=== PATIENT | female | born 1945 | race Caucasian/White ===

== ENCOUNTER 2018-07-14 09:53 | Observation (INO) ==
--- NOTE | 2018-07-14 10:59 | Emergency Department Note ---
Disposition Clinical Impression: Epistaxis GI bleed Qualifiers: GI bleed type/associated pathology: unspecified gastrointestinal hemorrhage type Qualified Code(s): K92.2 - Gastrointestinal hemorrhage, unspecified Disposition: Admitted As Inpatient Condition: Good Referrals: Cat Moser CNP [Primary Care Provider] - Christiano Duarte [Family Provider] - Forms: ED Satisfaction Letter Time of Disposition: 11:29 General Adult HPI - General Chief complaint: ED Epistaxis Stated complaint: epistaxis Time Seen by Provider: 07/14/18 10:02 Source: patient Mode of arrival: ambulatory Limitations: no limitations Nursing Notes Reviewed: Yes Vital Signs Reviewed: Yes - History of Present Illness HPI Narrative: Patient is a transfer here via EMS from [facility] for further evaluation. Patient was seen there for having 4 days of epistaxis. She is on Coumadin but says she stopped taking 4 days ago started having the bleeding. She says the bleeding is been intermittent for the last 3 days. While [facility] they did place 2 rhino rockets in the left there which did stop the bleeding. Patient had a normal hemoglobin and elevated INR 2.6 so they gave vitamin K but due to the length of time to get fresh frozen plasma they said a transfer here before given any FFP. Patient otherwise says she feels well now. She was sent here for ENT and GI follow-up. While patient was at the outside hospital she did have a bowel movement and a commode which was black they did do Hemoccult and it was positive for blood Sirs worry about GI bleed. Patient does not have any GI complaints including no abdominal pain or any nausea or vomiting. Pain Scale: 0 - Related Data Home Medications Medication Instructions Recorded Confirmed Albuterol Sulfate [Proair Hfa] 2 puff IH Q4H PRN 07/14/18 07/14/18 Fluticasone Propionate Nasal 1 spray NS DAILY PRN 07/14/18 07/14/18 [Flonase] Levothyroxine Sodium [Levoxyl] 50 mcg PO DAILY 07/14/18 07/14/18 Metoprolol Succinate [Toprol Xl] 100 mg PO DAILY 07/14/18 07/14/18 Warfarin Sodium 3.75 mg PO DAILY 07/14/18 07/14/18 Allergies Allergy/AdvReac Type Severity Reaction Status Date / Time tetanus and diphtheria Allergy Swelling Verified 07/14/18 10:02 toxoids of Lip/Tongue/Throat codeine AdvReac Headache Verified 07/14/18 10:02 Sulfa (Sulfonamide AdvReac Headache Verified 07/14/18 10:02 Antibiotics) Review of Systems: As Per HPI Limitations: ROS unobtainable due to patients medical condition Constitutional: Denies: fever, chills, weakness, weight change Eyes: Denies: eye pain, eye discharge, vision change ENT ED: Reports: epistaxis. Denies: ear pain, throat pain, dental pain, hearing loss, congestion, dysphagia Cardiovascular: Denies: chest pain, palpitations, dyspnea on exertion, edema, syncope Respiratory: Denies: cough, dyspnea, wheezes, hemoptysis, stridor Gastrointestinal: Denies: abdominal pain, nausea, vomiting, diarrhea, constipation, hematemesis, melena, hematochezia Genitourinary: Denies: dysuria, frequency, hematuria, discharge Musculoskeletal: Denies: back pain, neck pain, arthralgia, myalgia Integumentary: Denies: rash, abrasion, lesions Neurological: Denies: headache, weakness, numbness, paresthesias, confusion, abnormal gait, vertigo Psychiatric: Denies: anxiety, depression, suicidal thoughts, homicidal thoughts , auditory hallucinations, visual hallucinations Endocrine: Denies: fatigue Hematological/Lymphatic: Reports: easy bleeding. Denies: easy bruising Allergic/Immunologic: Denies: facial swelling, urticaria Past Medical History - Past Medical History Attestation: Yes The following information was validated with the patient. Source: patient Medical history: Reports: atrial fibrillation, cancer, COPD, hypertension Psychiatric history: Reports: no psych history - Social History Smoking Status: Current every day smoker Smokeless Tobacco Status: No Alcohol use: Reports: heavy Drug use: Reports: none Physical Exam - General Limitations: no limitations General appearance: alert, in no apparent distress - Head Head exam: atraumatic, normocephalic, normal inspection - Eye Eye exam: Present: normal appearance, PERRL, EOMI - ENT ENT exam: normal exam, normal oropharynx, mucous membranes moist, other (2 Rhino Rocket placed in the left nares no active bleeding at this time.) - Neck Neck exam: Present: normal inspection, full ROM, trachea midline - Chest Chest inspection: Present: normal inspection, symmetric chest wall rise - Respiratory Respiratory exam: Present: normal lung sounds bilaterally - Cardiovascular Cardiovascular exam: Present: regular rate, normal rhythm, normal heart sounds - Abdominal Exam Abdominal exam: Present: soft, Non-Tender, normal bowel sounds. Absent: tenderness, distention, guarding, rebound, rigidity - Extremities Exam Extremities exam: Present: normal inspection, full ROM. Absent: tenderness, pedal edema - Back Exam Back exam: Present: normal inspection, full ROM. Absent: tenderness, CVA tenderness (R), CVA tenderness (L) - Neurological Exam Neurological exam: Present: alert, oriented X3 - Skin Skin exam: Present: warm, dry, intact, normal color Course Course Narrative: Patient's pain workup was done at the outside hospital. She had normal white count and hematocrit crit was 40.9 hemoglobin 13.7 INR was 2.6 PTT was 45.4 vital signs of been stable. She did have one episode of hypertension where she was given 100 mg of Lopressor her blood pressure dropped to 102/60 so she was given 500 mL of IV fluid and responded well to that. She is arty Hemoccult- positive at the outside ER. We will repeat a PT INR as well as CBC be sure she still stable. Patient will need admission to hospital Vital Signs Temperature 99.2 F 07/14/18 09:56 Pulse Rate 71 07/14/18 09:56 Respiratory Rate 18 07/14/18 09:56 Blood Pressure 137/70 07/14/18 09:56 O2 Sat by Pulse Oximetry 98 07/14/18 09:56 Temperature 99.2 F 07/14/18 09:56 Pulse Rate 71 07/14/18 09:56 Respiratory Rate 18 07/14/18 09:56 Blood Pressure 137/70 07/14/18 09:56 O2 Sat by Pulse Oximetry 98 07/14/18 09:56 Oxygen Delivery Oxygen Delivery Room Air Medical Decision Making - MDM Narrative Medical decision making narrative: Patient had INR 2.3 and a stable hemoglobin of 13.4. Due to the possible of a GI bleed from the outside hospital we will admit for further evaluation. I spoke with the hospitalist Dr. Russell who agreed to admit the patient to their service. Patient is admitted in stable condition she agrees with this plan. - Lab Data Lab results reviewed: Yes I reviewed the patient's lab results. Result diagrams: 07/14/18 10:58 Lab Results 07/14/18 07/14/18 Range/Units 10:58 10:58 WBC 7.5 (4.3-11.1) K/mcL RBC 4.14 (3.82-4.97) M/mcL Hgb 13.4 (11.5-15.4) g/dL Hct 41.1 (35.3-44.9) % MCV 99.3 (83.0-100.0) fL MCH 32.4 (28.0-33.3) pg MCHC 32.6 (31.6-35.5) g/dL RDW 13.2 (11.5-14.5) % Plt Count 114 L (140-400) K/mcL MPV 11.8 (9.4-12.4) fL Immature Gran % 0.3 (0-4) % Seg Neutrophils % 80.4 % Lymphocytes % 10.9 % Monocytes % 7.5 % Eosinophils % 0.5 % Basophils % 0.4 % Neutrophils # 6.0 (1.6-8.9) K/mcL Lymphocytes # 0.8 (0.6-4.6) K/mcL Monocytes # 0.6 (0.0-1.3) K/mcL Eosinophils # 0.0 (0.0-0.6) K/mcL Basophils # 0.0 (0.0-0.2) K/mcL PT 25.6 H (9.4-12.1) Seconds INR 2.3
[2018-07-14 11:10] LABS: Basophils % 0.4 %; Eosinophils % 0.5 %; Hematocrit 41.1 % (35.3-44.9); Hemoglobin 13.4 g/dL (11.5-15.4); Immature Granulocytes % 0.3 % (0-4); Lymphocytes # 0.8 K/mcL (0.6-4.6); Lymphocytes % 10.9 %; Mean Corpuscular HGB Conc 32.6 g/dL (31.6-35.5); Mean Corpuscular Hemoglobin 32.4 pg (28.0-33.3); Mean Corpuscular Volume 99.3 fL (83.0-100.0); Mean Platelet Volume 11.8 fL (9.4-12.4); Monocytes # 0.6 K/mcL (0.0-1.3); Monocytes % 7.5 %; Platelet Count 114 K/mcL (140-400); Red Blood Count 4.14 M/mcL (3.82-4.97); Red Cell Distribution Width 13.2 % (11.5-14.5); Segmented Neutrophils % 80.4 %
--- NOTE | 2018-07-14 11:10 | Emergency Department Note ---
Disposition Clinical Impression: Epistaxis GI bleed Qualifiers: GI bleed type/associated pathology: unspecified gastrointestinal hemorrhage type Qualified Code(s): K92.2 - Gastrointestinal hemorrhage, unspecified Disposition: Admitted As Inpatient Condition: Good Forms: ED Satisfaction Letter Time of Disposition: 11:11 General Adult HPI - General Chief complaint: ED Epistaxis Stated complaint: epistaxis Time Seen by Provider: 07/14/18 10:02 Source: patient Mode of arrival: ambulatory Limitations: no limitations - History of Present Illness Pain Scale: 0 - Related Data Home Medications Medication Instructions Recorded Confirmed Albuterol Sulfate [Proair Hfa] 2 puff IH Q4H PRN 07/14/18 07/14/18 Fluticasone Propionate Nasal 1 spray NS DAILY PRN 07/14/18 07/14/18 [Flonase] Levothyroxine Sodium [Levoxyl] 50 mcg PO DAILY 07/14/18 07/14/18 Metoprolol Succinate [Toprol Xl] 100 mg PO DAILY 07/14/18 07/14/18 Warfarin Sodium 3.75 mg PO DAILY 07/14/18 07/14/18 Allergies Allergy/AdvReac Type Severity Reaction Status Date / Time tetanus and diphtheria Allergy Swelling Verified 07/14/18 10:02 toxoids of Lip/Tongue/Throat codeine AdvReac Headache Verified 07/14/18 10:02 Sulfa (Sulfonamide AdvReac Headache Verified 07/14/18 10:02 Antibiotics) Constitutional: Denies: fever, chills, weakness, weight change Eyes: Denies: eye pain, eye discharge, vision change ENT ED: Reports: epistaxis. Denies: ear pain, throat pain, dental pain, hearing loss, congestion, dysphagia Cardiovascular: Denies: chest pain, palpitations, dyspnea on exertion, edema, syncope Respiratory: Denies: cough, dyspnea, wheezes, hemoptysis, stridor Gastrointestinal: Denies: abdominal pain, nausea, vomiting, diarrhea, constipation, hematemesis, melena, hematochezia Genitourinary: Denies: dysuria, frequency, hematuria, discharge Musculoskeletal: Denies: back pain, neck pain, arthralgia, myalgia Integumentary: Denies: rash, abrasion, lesions Neurological: Denies: headache, weakness, numbness, paresthesias, confusion, abnormal gait, vertigo Psychiatric: Denies: anxiety, depression, suicidal thoughts, homicidal thoughts , auditory hallucinations, visual hallucinations Endocrine: Denies: fatigue Hematological/Lymphatic: Reports: easy bleeding. Denies: easy bruising Allergic/Immunologic: Denies: facial swelling, urticaria Past Medical History - Past Medical History Medical history: Reports: atrial fibrillation, cancer, COPD, hypertension Psychiatric history: Reports: no psych history - Social History Smoking Status: Current every day smoker Smokeless Tobacco Status: No Alcohol use: Reports: heavy Drug use: Reports: none Physical Exam - General Limitations: no limitations General appearance: alert, in no apparent distress Course Vital Signs Temperature 99.2 F 07/14/18 09:56 Pulse Rate 71 07/14/18 09:56 Respiratory Rate 18 07/14/18 09:56 Blood Pressure 137/70 07/14/18 09:56 O2 Sat by Pulse Oximetry 98 07/14/18 09:56 Temperature 99.2 F 07/14/18 09:56 Pulse Rate 71 07/14/18 09:56 Respiratory Rate 18 07/14/18 09:56 Blood Pressure 137/70 07/14/18 09:56 O2 Sat by Pulse Oximetry 98 07/14/18 09:56 Oxygen Delivery Oxygen Delivery Room Air Attestation Statement - Attestation Attestation: I examined this patient and my medical decision-making was reviewed with the Resident Physician. I agree with the documented findings, disposition and treatment plan as described except to the extent set forth below. 73 year old female presents to the ED with complaints about nosebleed and balck stools. Shes tates that she is currently on coumadin and is therapeutic with a INR of 2.6 and states that she was seen at an outside facility [facility] for the initial workup and had a hemoccult postive test which is likley from the blood she may have been swallowing over hte course of the night fromher nose bleed in addition to have nasal rockets palced and her nosebleed as stopped. The outside facility has bgiven her vitamin K before arrival. NO FFP, and I do not think she needs FFP at this time. She has been sent here for admission for GI/ENT possible evlauation.
[2018-07-14 11:19] LABS: INR 2.3; Prothrombin Time 25.6 Seconds (9.4-12.1)
[2018-07-14] MEDS ORDERED: Naloxone 0.4 MG/ML INJ IVP PRN (11:49)
--- NOTE | 2018-07-14 13:17 | Internal Med History&Physical ---
Date of Encounter: 07/14/18 Internal Medicine - H&P: HPI History of present illness: Ms. Fatima is a 73 year old female Past Med Surg Social Fam HX - Past Medical History Medical history: atrial fibrillation, cancer, COPD, hypertension Psychiatric history: no psych history - Social History Smoking Status: Current every day smoker Smokeless Tobacco Status: No Alcohol use: heavy Drug use: none Internal Medicine - H&P: Meds Albuterol Sulfate [Proair Hfa] 2 puff IH Q4H PRN 07/14/18 [History] Fluticasone Propionate Nasal [Flonase] 1 spray NS DAILY PRN 07/14/18 [History] Levothyroxine Sodium [Levoxyl] 50 mcg PO DAILY 07/14/18 [History] Metoprolol Succinate [Toprol Xl] 100 mg PO DAILY 07/14/18 [History] Warfarin Sodium 3.75 mg PO DAILY 07/14/18 [History] 3 Allergy/AdvReac Type Severity Reaction Status Date / Time tetanus and diphtheria Allergy Swelling Verified 07/14/18 10:02 toxoids of Lip/Tongue/Throat codeine AdvReac Headache Verified 07/14/18 10:02 Sulfa (Sulfonamide AdvReac Headache Verified 07/14/18 10:02 Antibiotics) All Systems PM: A 10-system review of systems was performed and is negative for pertinent findings except as documented above in the HPI. - Constitutional Vitals: Temp Pulse Resp BP Pulse Ox 99.2 F 84 18 139/84 97 07/14/18 09:56 07/14/18 12:03 07/14/18 09:56 07/14/18 12:03 07/14/18 12:03 Internal Med - H&P Results - Labs CBC & Chem 7: 07/14/18 10:58 - Time Spent With Patient Total time spent is greater than 50% in coordination of care (as documented) at patient's floor/unit and/or counseling patient:
--- NOTE | 2018-07-14 15:15 | Internal Med History&Physical ---
Date of Encounter: 07/14/18 Time of Encounter: 10:00 Internal Medicine - H&P: HPI Chief complaint: Nose bleeding for the past 72 hours waxing and waning. Admitted From: Emergency Dept Plans for Post Hospital Care: Home History of present illness: Ms. Fatima is a 73 year old female whom was transferred from [facility] Emergency department with Epistasis from bilateral nares. She was found to have had positive occult stools, PLT were low @112, PT elevated @28.6, INR of 2.6. PTT 45.4. Her b/p was elevated @ 152/106, with hx of essential hypertension . Patient denied any injury or trauma to the nose, with sudden on set of nose bleeds "that she could control " 3 days prior to reporting to [facility]. Reports that she reports that her INR "usually runs between 2.5 and 3". ED course [facility] Patient was evaluated and given 500 ml of NS for mild hypotensive episode with recoreded b/p of 102/60, , although previous readings were elevated with highiest number noted of 179/87. [place] [id number]. She was given 100 mg Lopressor ;po and 10 mg of Hydralazine IV along with 10 mg of Vitamin K sq. H and H were found to be normal with 13.7 and 40.9 respectively. Protonix bolus was given. Rapid Rhino packing was placed both nostrils. EKG was obtained and positive for Atrial fibrillation, rightward axis, Vent rat of 79. Determination after review at [facility] to transfer here to [place] was made and patient was accepted by [place] ED. Patient arrived in stable condition per EMS with Rapd Rhino packing in place both nares , with continued small amount of bright red bleeding around nasal devices. On PE patient is no acute distress, denies gross hematuria , blood in stool, pain, or diacomfort. She is seated comfortably on the side of the bed. She does become dyspnic with laying down to examine the abdomen, and states she had left upper quad pain with percussion. Reports she continues to smoke 1ppd x > 30 years, and is not willing to quit at this time. Abdomin was soft with BS x 4 quads. Patient was evaluated per this provider in ED as well as Dr. Russell, decision to admit to observation unit was completed, and patient was transferred from ED to Observation unit 3B for further workup with ENT,and gastroenterology. HX: * Afib with anticoagulation , taking Coumadin 3.5 mg daily with monitoring of PT/INR monthly, * Hypertension *COPD * Smoking 1 ppd for more than 30 pack years *Atrial fibrillation *Alcohol abuse history Past Med Surg Social Fam HX - Past Medical History Source: patient Medical history: atrial fibrillation, cancer, COPD, hypertension Additional medical history: Smoker. Nicotine Addiction. COPD. Alcohol use daily Psychiatric history: no psych history - Social History Smoking Status: Current every day smoker Packs per day: 1 Smokeless Tobacco Status: No Alcohol use: heavy Drug use: none Current living situation: Home - Independent Activity Level: Independent ambulation Recent Out of Country Travel Within the Last 8 Weeks: No Exposure or Possible Exposure to Illness During Travel: No Internal Medicine - H&P: Meds Albuterol Sulfate [Proair Hfa] 2 puff IH Q4H PRN 07/14/18 [History] Fluticasone Propionate Nasal [Flonase] 1 spray NS DAILY PRN 07/14/18 [History] Levothyroxine Sodium [Levoxyl] 50 mcg PO DAILY 07/14/18 [History] Metoprolol Succinate [Toprol Xl] 100 mg PO DAILY 07/14/18 [History] Warfarin Sodium 3.75 mg PO DAILY 07/14/18 [History] 3 Allergy/AdvReac Type Severity Reaction Status Date / Time tetanus and diphtheria Allergy Swelling Verified 07/14/18 10:02 toxoids of Lip/Tongue/Throat codeine AdvReac Headache Verified 07/14/18 10:02 Sulfa (Sulfonamide AdvReac Headache Verified 07/14/18 10:02 Antibiotics) IVP dye Allergy Difficulty Uncoded 07/14/18 15:45 Breathing All Systems PM: A 10-system review of systems was performed and is negative for pertinent findings except as documented above in the HPI. - Constitutional Constitutional: fatigue, weakness - EENT Eyes: as per HPI Nose, mouth and throat: epistaxis - Cardiovascular Cardiovascular ROS IM: dyspnea on exertion - Respiratory Respiratory: dyspnea, wheezing - Gastrointestinal Gastrointestinal: hematochezia (patient denied any visable blood in stool, ) Additional comments: positive with BM as documented per Adeline CHAVEZ - Genitourinary Additional comments: Denies gross hematuria - Integumentary Integumentary IM: erythema Additional comments: positive hx of plaque psoriasis knees and lower ext. - Constitutional Vitals: Temp Pulse Resp BP Pulse Ox 98.0 F 85 16 164/87 94 07/14/18 14:17 07/14/18 14:17 07/14/18 14:17 07/14/18 14:17 07/14/18 14:17 General appearance: Present: cachectic, disheveled, A&O X 3, no acute distress Exam: Sitting comfortable on side of bed - Head Head exam: Present: atraumatic, normal inspection - Eye Eye exam: Present: EOMI, normal appearance - ENT Additional comments: rhino Rocket packing in place bilateral nares. Contiued seeping of the right nare wiht bright red blood noted. - Respiratory Respiratory exam: Present: prolonged expiratory phase, wheezes - Cardiovascular Cardiovascular exam: Present: irregular rhythm, systolic murmur - GI/Abdominal GI/Abdominal exam: Present: guarding, normal bowel sounds, soft, tenderness Additional comments: tenderness LUQ with percussion - Neurological Exam Neurological exam: Present: alert, CN II-XII intact, oriented X3, no focal deficits - Skin Skin exam: Present: erythema (Plaque psoriasis noted left inner knee ) Internal Med - H&P Results - Labs CBC & Chem 7: 07/14/18 10:58 - Time Spent With Patient Total time spent is greater than 50% in coordination of care (as documented) at patient's floor/unit and/or counseling patient:
[2018-07-14] MEDS ORDERED: Metoprolol XL (24 HR) Succ 50 MG TAB.ER.24H PO ONE (15:51)
[2018-07-14] MEDS: Pantoprazole 40 MG VIAL IVP SCH (17:43)
[2018-07-14 18:56] LABS: Hematocrit 38.8 % (35.3-44.9)
[2018-07-15 04:08] LABS: Basophils % 0.4 %; Eosinophils # 0.1 K/mcL (0.0-0.6); Eosinophils % 0.9 %; Hematocrit 36.4 % (35.3-44.9); Hemoglobin 12.1 g/dL (11.5-15.4); Immature Granulocytes % 0.3 % (0-4); Lymphocytes # 1.1 K/mcL (0.6-4.6); Lymphocytes % 11.5 %; Mean Corpuscular HGB Conc 33.2 g/dL (31.6-35.5); Mean Corpuscular Hemoglobin 32.6 pg (28.0-33.3); Mean Corpuscular Volume 98.1 fL (83.0-100.0); Mean Platelet Volume 12.2 fL (9.4-12.4); Monocytes # 0.9 K/mcL (0.0-1.3); Monocytes % 9.8 %; Platelet Count 107 K/mcL (140-400); Red Blood Count 3.71 M/mcL (3.82-4.97); Red Cell Distribution Width 13.4 % (11.5-14.5); Segmented Neutrophils % 77.1 %
[2018-07-15 04:17] LABS: INR 1.4; Prothrombin Time 15.4 Seconds (9.4-12.1)
[2018-07-15 04:24] LABS: BUN/Creatinine Ratio 31 (6-26); Blood Urea Nitrogen 15 mg/dL (8-23); Calcium 9.5 mg/dL (8.6-10.3); Carbon Dioxide 30 mEq/L (23-29); Chloride 98 mEq/L (98-107); Glucose 117 mg/dL (70-105); Osmolality,Calculated 282 (280-300); Potassium 3.3 mEq/L (3.5-5.1); Sodium 135 mEq/L (136-145); eGFR For Non-African Americans > 60 (> 60)
[2018-07-15] MEDS: Pantoprazole 40 MG VIAL IVP SCH ×2 (05:59→17:06)
[2018-07-15] MEDS: Metoprolol XL (24 HR) Succ 50 MG TAB.ER.24H PO SCH (09:56)
--- NOTE | 2018-07-15 10:29 | Internal Med Progress Note ---
Hospitalist Progress Note - Encounter Date of Encounter: 07/15/18 Time of Encounter: 10:15 - Subjective Interval History: Pt was seen and assessed at 1015 a.m. Family x 2 at bedside. Pt has active epistaxis, rapid rhino inserted in bilateral nares. Pt and family concerned about bleeding. Pt denies pain, shortness of breath, but reports some nausea due to blood running down her throat. - Exam Vitals: Temp Pulse Resp BP Pulse Ox 97.8 F 56 15 152/79 95 07/15/18 07:25 07/15/18 07:25 07/15/18 07:25 07/15/18 07:25 07/15/18 07:25 Exam: General: Pt resting quietly on bed, no distress. Skin: pwd, no rashes, lesions, redness Neurological: Pt is alert and awake, oriented x 3, Speech is clear, PERRLA, EOMI , no nystagmus, no pronator drift. strength equal x 4 extremities HEENT: mucous mumbranes moist, no conjuctival pallor Neck: supple, no tracheal deviation, no lymphadenopathy, tenderness, no thyromegaly Heart: S1S2 heard without gallops, clicks, murmurs, no bradycardia or tachycardia, pt has no peripheral edema, pedal and radial pulses palpable bilaterally. Lungs: clear throughout without wheezing, rales, or ronchi, respirations are unlabored Abdomen: soft and non tender with bowel sound present, no hepatomegaly. Psych: Normal affect with good eye contact - Assessment and Plan (1) Epistaxis Current Visit: Yes Status: Acute Assessment and Plan: Pt presented to outside ER with c/o epistaxis and GI bleed. pt actively bleeding around rapid rhinos this a.m. ENT consulted, called this a.m. and will come see pt this a.m. Hgb stable this a.m., will repeat and trend Pt takes Coumadin, it has been held. INR therapeutic on arrival, 1.4 today. Repeat Hgb 12.6 at 1030 a.m. Pt was given Vitamin K at [facility]. IVF hydration 0.9NS at 75ml/hr Pantoprazole IV Ondansetron 4mg IVP q6h prn nausea NPO Trend H&H ENT consulted and pending. (2) GI bleed Current Visit: Yes Status: Acute Assessment and Plan: Pt presented to outside hospital with c/o GIB and + stool occult blood at outlying hospital. GI has been consulted. I appreciate their recommendations. Hgb stable Pt takes Warfarin, it has been held. IVF hydration as above NPO (3) Afib Current Visit: Yes Status: Chronic Assessment and Plan: Chronic. Rate controlled. Continue BB. Warfarin held for epistaxis Continue telemetry (4) HTN (hypertension) Current Visit: Yes Status: Chronic Assessment and Plan: Chronic. Mild HTN today. IV HYdralazine prn. Continue to monitor vitals. (5) COPD (chronic obstructive pulmonary disease) Current Visit: Yes Status: Acute Assessment and Plan: No acute exacerbation. Pt still smokes 1/2 PPD. Duonebs, 02 as needed to maintain sats > 92% Telemetry (6) DVT prophylaxis Current Visit: Yes Status: Acute Assessment and Plan: SCDs. No pharmacologic intervention due to epistaxis. - Time Spent with Patient Total time spent is greater than 50% in coordination of care (as documented) at patient's floor/unit and/or counseling patient: less than 15 minutes Plan of Care Discussed with: patient (family x 2 at bedside, plan discussed with them, as well.) Internal Medicine: Result - Labs CBC & Chem 7: 07/15/18 10:36 07/15/18 03:18 Labs: Short CBC 07/14/18 07/15/18 Range/Units 18:37 03:18 WBC 9.1 (4.3-11.1) K/mcL Hgb 13.0 12.1 (11.5-15.4) g/dL Hct 38.8 36.4 (35.3-44.9) % Plt Count 107 L (140-400) K/mcL Neutrophils # 7.0 (1.6-8.9) K/mcL BMP 07/15/18 03:18 Sodium 135 L Potassium 3.3 L Chloride 98 Carbon Dioxide 30 H BUN 15 Creatinine 0.48 L Glucose 117 H Calcium 9.5 - ABG Interpretation ABG results: PT/INR, D-dimer PT 15.4 Seconds (9.4-12.1) H 07/15/18 03:18 - Impressions Impressions Abdomen/Pelvis CT 07/14/18 16:19 IMPRESSION: 1. No acute process in the abdomen or pelvis. 2. Moderate diverticulosis, predominantly in the sigmoid colon. No evidence of diverticulitis. 3. Cardiomegaly. 4. Coronary atherosclerosis. D/ / 07/14/2018 17:41:23 Prakash De La Torre MD / nelson Interpreting Provider: Prakash De La Torre MD - VTE Documentation of Mechanical Device: Intermittent pneumatic compression device Consult Discharge Plan - Plan Referrals: Cat Moser ENVIRONMENTAL HEALTH TECHNICIAN [Primary Care Provider] - (Your appointment has been requested. Our offices will call you with an appointment time and date.) (2) GI bleed Qualifiers: GI bleed type/associated pathology: unspecified gastrointestinal hemorrhage type Qualified Code(s): K92.2 - Gastrointestinal hemorrhage, unspecified (3) Afib Qualifiers: Atrial fibrillation type: unspecified Qualified Code(s): I48.91 - Unspecified atrial fibrillation (4) HTN (hypertension) Qualifiers: Hypertension type: unspecified Qualified Code(s): I10 - Essential (primary) hypertension (5) COPD (chronic obstructive pulmonary disease) Qualifiers: COPD type: unspecified COPD Qualified Code(s): J44.9 - Chronic obstructive pulmonary disease, unspecified
[2018-07-15] MEDS ORDERED: Ondansetron 4 MG/2 ML VIAL IVP PRN (10:30)
[2018-07-15] MEDS ORDERED: 0.9 % Sodium Chloride 1,000 ML ONE (10:35)
[2018-07-15 10:51] LABS: Hematocrit 37.7 % (35.3-44.9); Hemoglobin 12.6 g/dL (11.5-15.4)
--- NOTE | 2018-07-15 11:42 | ENT - Consult Note ---
Addendum entered and electronically signed by Jo-Ann Andrade CNP 07/15/18 16:14: Assessed patient at approximately 1600 no active bleeding was identified in posterior oropharynx. Original Note: <Jo-Ann Andrade - Last Filed: 07/15/18 15:43> Date of Encounter: 07/15/18 Time of Encounter: 11:40 Assessment and Plan (1) Epistaxis Status: Acute Patient seen and examined by this provider and Dr. Self ENT physician today. Patient noted to have active bleeding around left anterior/posterior balloon packing and from right nare. Patient also noted to have clotting in oropharynx with active bleeding. Left anterior posterior balloon deflated and removed. Afrin with lidocaine nasal spray was sprayed in bilateral nares. Nasal endoscopy was attempted, which patient did not tolerate well. No anterior bleed identified. Unable to identify source for posterior bleed. Previous left nasal packing was replaced with Merocel wrapped in Surgicel packing. A 7.5 cm anterior/posterior Rhino Rocket packing was then placed in the right Nare and inflated with 10ml of air. After bilateral packing placement patient's bleeding reduced significantly and was noted to be a slight ooze, at approximately one hour post placement. Embolization was discussed with IR physician, risks versus benefits were discussed and it was mutually agreed upon to continue to monitor patient at this time. On-call ENT physician will round and assess patient tomorrow. will start oral Keflex antibiotic 500 mg TID to be administered for duration of packing placement. Plan of Care was discussed at length with patient and patient's family at bedside. Patient stated her understanding and agreed with plan of care. All questions answered. History of Present Illness Consult date: 07/15/18 Reason for ENT Consult: epistaxis Requesting physician: Erick Russell History of present illness: Patient is a 73 year old female who presented to ER on 07/14/18 via transfer from from [facility] for evaluation of epistaxis, supratherapeutic INR, with positive hemoccult test. Patient is on coumadin for atrial fibrillation which she states she stopped now five days ago when epistaxis initially began. Patient reports 4 days of epistaxis prior to being seen at [place]. Patient had rhino rocket placed to left nare at [facility]. Patient reports since packing placement she has continued to ooze from the right nare. Past Med Surg Social Fam HX - Past Medical History Medical history: atrial fibrillation, cancer, COPD, hypertension Additional medical history: Smoker. Nicotine Addiction. COPD. Alcohol use daily Psychiatric history: no psych history - Past Surgical History Additional surgical history: Tubal - Social History Smoking Status: Current every day smoker Packs per day: 1 Smokeless Tobacco Status: No Alcohol use: heavy Drug use: none Medications and Allergies Albuterol Sulfate [Proair Hfa] 2 puff IH Q4H PRN 07/14/18 [History] Fluticasone Propionate Nasal [Flonase] 1 spray NS DAILY PRN 07/14/18 [History] Levothyroxine Sodium [Levoxyl] 50 mcg PO DAILY 07/14/18 [History] Metoprolol Succinate [Toprol Xl] 100 mg PO DAILY 07/14/18 [History] Warfarin Sodium 3.75 mg PO DAILY 07/14/18 [History] cephALEXin [Keflex] 500 mg PO TID #6 capsule 07/17/18 [Rx] 3 Allergy/AdvReac Type Severity Reaction Status Date / Time tetanus and diphtheria Allergy Swelling Verified 07/14/18 10:02 toxoids of Lip/Tongue/Throat codeine AdvReac Headache Verified 07/14/18 10:02 Sulfa (Sulfonamide AdvReac Headache Verified 07/14/18 10:02 Antibiotics) IVP dye Allergy Difficulty Uncoded 07/14/18 15:45 Breathing ENT - ROS - EENT Nose, mouth and throat: epistaxis ENT Exam Initial Vital Signs Temp Pulse Resp BP Pulse Ox 99.2 F 71 18 137/70 98 07/14/18 09:56 07/14/18 09:56 07/14/18 09:56 07/14/18 09:56 07/14/18 09:56 - General physical appearance well developed, no distress, no pain - Eyes PERRL, normal ocular movement - ENT CN 2-12 grossly intact, Other (Patient with active bleeding noted to left Nare. Patient also noted to have clotting and active bleeding to post oropharyngeal wall. Unable to identify source of posterior bleed no identifiable anterior bleed noted.) - Neck trachea midline - Respiratory normal expansion, normal respiratory effort Exam Initial Vital Signs Temp Pulse Resp BP Pulse Ox 99.2 F 71 18 137/70 98 07/14/18 09:56 07/14/18 09:56 07/14/18 09:56 07/14/18 09:56 07/14/18 09:56 Results - Labs 07/15/18 10:36 07/15/18 03:18 Abnormal lab results RBC 3.71 M/mcL (3.82-4.97) L 07/15/18 03:18 Plt Count 107 K/mcL (140-400) L 07/15/18 03:18 PT 15.4 Seconds (9.4-12.1) H 07/15/18 03:18 Sodium 135 mEq/L (136-145) L 07/15/18 03:18 Potassium 3.3 mEq/L (3.5-5.1) L 07/15/18 03:18 Carbon Dioxide 30 mEq/L (23-29) H 07/15/18 03:18 Creatinine 0.48 mg/dL (0.60-1.20) L 07/15/18 03:18 BUN/Creatinine Ratio 31 (6-26) H 07/15/18 03:18 Glucose 117 mg/dL (70-105) H 07/15/18 03:18 Diabetes panel 07/15/18 Range/Units 03:18 Sodium 135 L (136-145) mEq/L Potassium 3.3 L (3.5-5.1) mEq/L Chloride 98 (98-107) mEq/L Carbon Dioxide 30 H (23-29) mEq/L BUN 15 (8-23) mg/dL Creatinine 0.48 L (0.60-1.20) mg/dL Glucose 117 H (70-105) mg/dL Calcium 9.5 (8.6-10.3) mg/dL Calcium panel 07/15/18 Range/Units 03:18 Calcium 9.5 (8.6-10.3) mg/dL Pituitary panel 07/15/18 Range/Units 03:18 Sodium 135 L (136-145) mEq/L Potassium 3.3 L (3.5-5.1) mEq/L Chloride 98 (98-107) mEq/L Carbon Dioxide 30 H (23-29) mEq/L BUN 15 (8-23) mg/dL Creatinine 0.48 L (0.60-1.20) mg/dL Glucose 117 H (70-105) mg/dL Calcium 9.5 (8.6-10.3) mg/dL Adrenal panel 07/15/18 Range/Units 03:18 Sodium 135 L (136-145) mEq/L Potassium 3.3 L (3.5-5.1) mEq/L Chloride 98 (98-107) mEq/L Carbon Dioxide 30 H (23-29) mEq/L BUN 15 (8-23) mg/dL Creatinine 0.48 L (0.60-1.20) mg/dL Glucose 117 H (70-105) mg/dL Calcium 9.5 (8.6-10.3) mg/dL All other labs normal. Consult Discharge Plan - Plan Instructions: Atrial Fibrillation (DC), Epistaxis (DC), Chronic Obstructive Pulmonary Disease (DC), Chronic Hypertension (DC) Additional Instructions: Come to the ER tomorrow evening at 5pm and have them call Dr. Del Valle to come to remove the packing from your nose. Take your antibiotic as directed Do not start your Warfarin again until 24 hours after the remaining packing is removed. Take your other medications as directed. Return to your other activities and diet as tolerated. Referrals: Cat Moser CNP [Primary Care Provider] - (Your appointment has been requested. Our offices will call you with an appointment time and date.) Prescriptions: cephALEXin [Keflex] 500 mg PO TID #6 capsule <Corbin Self - Last Filed: 07/19/18 09:09> Date of Encounter: 07/19/18 Assessment and Plan (1) Epistaxis Status: Acute History of Present Illness History of present illness: Patient also denies any trauma to the nose, including digital manipulation. She has had packing placed in the past approxiately 10 years ago on the left. ENT Exam Initial Vital Signs Temp Pulse Resp BP Pulse Ox 99.2 F 71 18 137/70 98 07/14/18 09:56 07/14/18 09:56 07/14/18 09:56 07/14/18 09:56 07/14/18 09:56 Exam Initial Vital Signs Temp Pulse Resp BP Pulse Ox 99.2 F 71 18 137/70 98 07/14/18 09:56 07/14/18 09:56 07/14/18 09:56 07/14/18 09:56 07/14/18 09:56 Results - Labs 07/17/18 05:00 07/17/18 08:45 Abnormal lab results RBC 3.71 M/mcL (3.82-4.97) L 07/15/18 03:18 Plt Count 107 K/mcL (140-400) L 07/15/18 03:18 PT 15.4 Seconds (9.4-12.1) H 07/15/18 03:18 Sodium 135 mEq/L (136-145) L 07/15/18 03:18 Potassium 3.3 mEq/L (3.5-5.1) L 07/15/18 03:18 Carbon Dioxide 30 mEq/L (23-29) H 07/15/18 03:18 Creatinine 0.48 mg/dL (0.60-1.20) L 07/15/18 03:18 BUN/Creatinine Ratio 31 (6-26) H 07/15/18 03:18 Glucose 117 mg/dL (70-105) H 07/15/18 03:18 Diabetes panel 07/15/18 Range/Units 03:18 Sodium 135 L (136-145) mEq/L Potassium 3.3 L (3.5-5.1) mEq/L Chloride 98 (98-107) mEq/L Carbon Dioxide 30 H (23-29) mEq/L BUN 15 (8-23) mg/dL Creatinine 0.48 L (0.60-1.20) mg/dL Glucose 117 H (70-105) mg/dL Calcium 9.5 (8.6-10.3) mg/dL Calcium panel 07/15/18 Range/Units 03:18 Calcium 9.5 (8.6-10.3) mg/dL Pituitary panel 07/15/18 Range/Units 03:18 Sodium 135 L (136-145) mEq/L Potassium 3.3 L (3.5-5.1) mEq/L Chloride 98 (98-107) mEq/L Carbon Dioxide 30 H (23-29) mEq/L BUN 15 (8-23) mg/dL Creatinine 0.48 L (0.60-1.20) mg/dL Glucose 117 H (70-105) mg/dL Calcium 9.5 (8.6-10.3) mg/dL Adrenal panel 07/15/18 Range/Units 03:18 Sodium 135 L (136-145) mEq/L Potassium 3.3 L (3.5-5.1) mEq/L Chloride 98 (98-107) mEq/L Carbon Dioxide 30 H (23-29) mEq/L BUN 15 (8-23) mg/dL Creatinine 0.48 L (0.60-1.20) mg/dL Glucose 117 H (70-105) mg/dL Calcium 9.5 (8.6-10.3) mg/dL All other labs normal. - Attending Attestation The patient was seen with my along with the FORMER HAND. Agree with the assessment and plan noted in the Consultation. After the patient had bilateral packing in place for approximately 3 hours the epistaxis was controlled. Discussed case with the weekend donation worker ENT including plan and patient current status.
--- NOTE | 2018-07-15 12:08 | Gastroenterology Consult Note ---
<Blaze Barrett - Last Filed: 07/15/18 11:58> Date of Encounter: 07/15/18 Time of Encounter: 11:00 - Assessment and plan (1) GI bleed Current Visit: Yes Status: Acute Assessment and plan: Patient with FOBT positive test at outside hospital, likely secondary to epistaxis. Hgb 12.1 today. Will consider EGD as outpatient. Follow up in GI office in 2-3 weeks. Qualifiers: GI bleed type/associated pathology: unspecified gastrointestinal hemorrhage type Qualified Code(s): K92.2 - Gastrointestinal hemorrhage, unspecified (2) Epistaxis Current Visit: Yes Status: Acute Assessment and plan: Management per ENT. - Time Spent With Patient Total time spent is greater than 50% in coordination of care (as documented) at patient's floor/unit and/or counseling patient: GI History of Present Illness - Data of Consult Patient: new to practice Consult date: 07/15/18 Requesting Physician: Erick Russell MD - Consult Narrative Reason for consult: r/o GI bleed History of present illness: Ms. Fatima is a 73 year old female with PMHx of Afib, COPD, HTN who was transferred from [facility] ED with epistaxis from bilateral nares for 4-5 days. She was found to have had positive occult stools. Her INR was 2.6 and she was given [address] A/P with no acute process noted. On admission here, Hgb 13.4, Hgb today 12.1. She denies abdominal pain, nausea, or vomiting. Procedures: None NSAIDs: None Anticoagulation: Coumadin Past Med Surg Social Fam HX - Past Medical History Medical history: atrial fibrillation, cancer, COPD, hypertension Additional medical history: Smoker. Nicotine Addiction. COPD. Alcohol use daily Psychiatric history: no psych history - Past Surgical History Additional surgical history: Tubal - Social History Smoking Status: Current every day smoker Packs per day: 1 Smokeless Tobacco Status: No Alcohol use: heavy Drug use: none - Gastrointestinal Gastrointestinal: Present: as per HPI - Constitutional Constitutional: as per HPI - EENT Eyes: as per HPI Ears: Present: as per HPI Nose, mouth and throat: Present: as per HPI - Cardiovascular Cardiovascular ROS: Present: as per HPI - Respiratory Respiratory IM: Present: as per HPI - Genitourinary Genitourinary: Absent: change in color, Urinary frequency - Neurological ROS Neurological GI: Present: as per HPI - Hematologic/Lymphatic Hematologic/Lymphatic pediatric: Present: as per HPI - Musculoskeletal Musculoskeletal ROS GI: Present: as per HPI - Integumentary Integumentary GI: Present: as per HPI - Psychiatric ROS Psychiatric GI: Present: as per HPI - Endocrine Endocrine IM: Present: as per HPI - Constitutional Vitals: Temp Pulse Resp BP Pulse Ox 97.8 F 56 15 152/79 95 07/15/18 07:25 07/15/18 07:25 07/15/18 07:25 07/15/18 07:25 07/15/18 07:25 General appearance: Present: cooperative, A&O X 3, no acute distress, answers questions appropriately - Head Head exam: Present: atraumatic, normocephalic - Eye Eye exam: Present: normal appearance, sclera anicteric - ENT Additional comments: packing in place. Bloody drainage noted. - Neck Neck exam general surgery: Present: normal inspection, trachea midline - Respiratory Respiratory exam: Present: decreased breath sounds, CTAB - Cardiovascular Cardiovascular exam: Present: RRR, +S1, +S2 - GI/Abdominal GI/Abdominal exam: Present: soft, no peritoneal signs. Absent: distended, firm , guarding, tenderness - Rectal Rectal exam: Present: deferred - Extremities Exam Extremities exam: Present: warm - Neurological Exam Neurological exam: Present: no focal deficits - Psychiatric Psychiatric exam: Present: normal affect, normal mood - Skin Skin exam: Present: dry, intact, normal color, warm Results - Labs CBC & Chem 7: 07/15/18 10:36 07/15/18 03:18 Labs: Last Result Calcium 9.5 mg/dL (8.6-10.3) 07/15/18 03:18 Entire Visit Hgb 12.6 g/dL (11.5-15.4) 07/15/18 10:36 Hct 37.7 % (35.3-44.9) 07/15/18 10:36 PT 15.4 Seconds (9.4-12.1) H 07/15/18 03:18 - ABG ABG results: PT/INR, D-dimer PT 15.4 Seconds (9.4-12.1) H 07/15/18 03:18 - Impressions Impressions Abdomen/Pelvis CT 07/14/18 16:19 IMPRESSION: 1. No acute process in the abdomen or pelvis. 2. Moderate diverticulosis, predominantly in the sigmoid colon. No evidence of diverticulitis. 3. Cardiomegaly. 4. Coronary atherosclerosis. D/ / 07/14/2018 17:41:23 Prakash De La Torre MD / nelson Interpreting Provider: Prakash De La Torre MD Consult Discharge Plan - Plan Referrals: Cat Moser MODEL AND [employer]KER [Primary Care Provider] - (Your appointment has been requested. Our offices will call you with an appointment time and date.) <Macarena Novak - Last Filed: 07/15/18 16:59> Date of Encounter: 07/15/18 Time of Encounter: 13:30 - Time Spent With Patient Total time spent is greater than 50% in coordination of care (as documented) at patient's floor/unit and/or counseling patient: GI History of Present Illness - Data of Consult Requesting Physician: Erick Russell MD - Consult Narrative History of present illness: Ms. Fatima is a 73 year old female - Constitutional Vitals: Temp Pulse Resp BP Pulse Ox 97.8 F 56 15 152/79 95 07/15/18 07:25 07/15/18 07:25 07/15/18 07:25 07/15/18 07:25 07/15/18 07:25 Results - Labs CBC & Chem 7: 07/15/18 16:35 07/15/18 03:18 Labs: Last Result Calcium 9.5 mg/dL (8.6-10.3) 07/15/18 03:18 Entire Visit Hgb 11.8 g/dL (11.5-15.4) 07/15/18 16:35 Hct 34.2 % (35.3-44.9) L 07/15/18 16:35 PT 15.4 Seconds (9.4-12.1) H 07/15/18 03:18 - ABG ABG results: PT/INR, D-dimer PT 15.4 Seconds (9.4-12.1) H 07/15/18 03:18 - Impressions Impressions Abdomen/Pelvis CT 07/14/18 16:19 IMPRESSION: 1. No acute process in the abdomen or pelvis. 2. Moderate diverticulosis, predominantly in the sigmoid colon. No evidence of diverticulitis. 3. Cardiomegaly. 4. Coronary atherosclerosis. D/ / 07/14/2018 17:41:23 Prakash De La Torre MD / nelson Interpreting Provider: Prakash De La Torre MD - Attending Attestation I have personally performed a face to face evaluation on this patient. I have reviewed and agree with the care plan. History and Exam by me shows: Pt seen . O/E nasal packing in place. A; Mild anemia and positive FOB but due to nasal bleed Rec: No need for endoscopy. Management per ENT
[2018-07-15] MEDS ORDERED: 0.9 % Sodium Chloride 500 ML ONE (14:03)
[2018-07-15] MEDS ORDERED: Heparin 1,000 UNITS/500 mL 500 ML ONE (14:03)
[2018-07-15] MEDS: 0.9 % Sodium Chloride 1,000 ML IVC SCH (16:13)
[2018-07-15 16:46] LABS: Hematocrit 34.2 % (35.3-44.9); Hemoglobin 11.8 g/dL (11.5-15.4)
[2018-07-15] MEDS: Acetaminophen 325 MG TABLET PO PRN (19:47)
[2018-07-15] MEDS: cephALEXin 500 MG CAPSULE PO SCH (21:11)
[2018-07-15 22:51] LABS: Hematocrit 32.5 % (35.3-44.9); Hemoglobin 11.1 g/dL (11.5-15.4)
[2018-07-16] MEDS: 0.9 % Sodium Chloride 1,000 ML IVC SCH (02:07)
[2018-07-16 05:20] LABS: Basophils % 0.4 %; Immature Granulocytes % 0.3 % (0-4); Mean Corpuscular Volume 97.5 fL (83.0-100.0)
[2018-07-16 05:23] LABS: Eosinophils # 0.1 K/mcL (0.0-0.6); Eosinophils % 1.5 %; Hematocrit 31.1 % (35.3-44.9); Hemoglobin 10.7 g/dL (11.5-15.4); Immature Platelets 12.4 % (1.1-6.1); Lymphocytes # 1.4 K/mcL (0.6-4.6); Lymphocytes % 18.3 %; Mean Corpuscular HGB Conc 34.4 g/dL (31.6-35.5); Mean Corpuscular Hemoglobin 33.5 pg (28.0-33.3); Monocytes # 0.9 K/mcL (0.0-1.3); Monocytes % 11.1 %; Neutrophils # 5.3 K/mcL (1.6-8.9); Platelet Count 98 K/mcL (140-400); Red Blood Count 3.19 M/mcL (3.82-4.97); Segmented Neutrophils % 68.4 %
[2018-07-16 05:27] LABS: INR 1.2; Prothrombin Time 13.4 Seconds (9.4-12.1)
[2018-07-16] MEDS: Pantoprazole 40 MG VIAL IVP SCH ×2 (06:09→17:43)
[2018-07-16] MEDS: cephALEXin 500 MG CAPSULE PO SCH ×3 (08:18→21:20)
[2018-07-16] MEDS: Metoprolol XL (24 HR) Succ 50 MG TAB.ER.24H PO SCH (08:18)
[2018-07-16] MEDS: Acetaminophen 325 MG TABLET PO PRN ×2 (08:23→15:33)
--- NOTE | 2018-07-16 11:52 | Internal Med Progress Note ---
Hospitalist Progress Note - Encounter Date of Encounter: 07/16/18 Time of Encounter: 09:45 - Subjective Interval History: Pt was seen and assessed at 0945 a.m. Family x 1 at bedside. Epistaxis has resolved, rapid rhino inserted in bilateral nares. Pt denies pain, shortness of breath, chest pain, dizziness, abdominal pain, nausea, or vomiting. ENT saw pt today and will reassess tomorrow, pt will likely be discharged tomorrow. - Exam Vitals: Temp Pulse Resp BP Pulse Ox 98.7 F 98 16 133/76 94 07/16/18 07:27 07/16/18 07:27 07/16/18 07:27 07/16/18 07:27 07/16/18 07:27 Exam: General: Pt resting quietly on bed, no distress. Skin: pwd, no rashes, lesions, redness Neurological: Pt is alert and awake, oriented x 3, Speech is clear, PERRLA, EOMI , no nystagmus, no pronator drift. strength equal x 4 extremities HEENT: mucous mumbranes moist, no conjuctival pallor, tina nares packed, bleeding controlled at this time. Neck: supple, no tracheal deviation, no lymphadenopathy, tenderness, no thyromegaly Heart: S1S2 heard without gallops, clicks, murmurs, no bradycardia or tachycardia, pt has no peripheral edema, pedal and radial pulses palpable bilaterally. Lungs: clear throughout without wheezing, rales, or ronchi, respirations are unlabored Abdomen: soft and non tender with bowel sound present, no hepatomegaly. Psych: Normal affect with good eye contact - Assessment and Plan (1) Epistaxis Current Visit: Yes Status: Acute Assessment and Plan: Pt presented to outside ER with c/o epistaxis and GI bleed. ENT consulted, I appreciate their recommendations. They will recheck her tomorrow, likely discharge tomorrow. Hgb stable this a.m. Pt takes Coumadin, it has been held. INR therapeutic, 1.2 today. Pt was given Vitamin K at [facility]. Pantoprazole IV Ondansetron 4mg IVP q6h prn nausea NPO Monitor H& H ENT following (2) GI bleed Current Visit: Yes Status: Acute Assessment and Plan: Pt presented to outside hospital with c/o GIB and + stool occult blood at outlying hospital. Likely due to swallowing blood from epistaxis. GI has been consulted. I appreciate their recommendations. Hgb stable Pt takes Warfarin, it has been held. IVF hydration as above Follow up with GI for scope in 2-3 weeks. (3) Afib Current Visit: Yes Status: Chronic Assessment and Plan: Chronic. Rate controlled. Continue BB. Warfarin held for epistaxis. Pt will need to see PCP/cardiology for anticoagulation after discharge. Continue telemetry (4) HTN (hypertension) Current Visit: Yes Status: Chronic Assessment and Plan: Chronic. IV HYdralazine prn. Continue to monitor vitals. (5) COPD (chronic obstructive pulmonary disease) Current Visit: Yes Status: Acute Assessment and Plan: No acute exacerbation. Pt still smokes 1/2 PPD. Duonebs, 02 as needed to maintain sats > 92% Telemetry Continuous pulse ox, 02. (6) DVT prophylaxis Current Visit: Yes Status: Acute Assessment and Plan: SCDs. No pharmacologic intervention due to epistaxis. - Time Spent with Patient Total time spent is greater than 50% in coordination of care (as documented) at patient's floor/unit and/or counseling patient: less than 15 minutes Plan of Care Discussed with: patient Internal Medicine: Result - Labs CBC & Chem 7: 07/16/18 05:04 07/15/18 03:18 Labs: Short CBC 07/15/18 07/15/18 07/16/18 Range/Units 16:35 22:26 05:04 WBC 7.8 (4.3-11.1) K/mcL Hgb 11.8 11.1 L 10.7 L (11.5-15.4) g/dL Hct 34.2 L 32.5 L 31.1 L (35.3-44.9) % Plt Count 98 L (140-400) K/mcL Neutrophils # 5.3 (1.6-8.9) K/mcL - ABG Interpretation ABG results: PT/INR, D-dimer PT 13.4 Seconds (9.4-12.1) H 07/16/18 05:04 - Impressions Impressions Abdomen/Pelvis CT 07/14/18 16:19 IMPRESSION: 1. No acute process in the abdomen or pelvis. 2. Moderate diverticulosis, predominantly in the sigmoid colon. No evidence of diverticulitis. 3. Cardiomegaly. 4. Coronary atherosclerosis. D/ / 07/14/2018 17:41:23 Prakash De La Torre MD / nelson Interpreting Provider: Prakash De La Torre MD - VTE Documentation of Mechanical Device: Intermittent pneumatic compression device Consult Discharge Plan - Plan Referrals: Cat Moser CNP [Primary Care Provider] - (Your appointment has been requested. Our offices will call you with an appointment time and date.) (2) GI bleed Qualifiers: GI bleed type/associated pathology: unspecified gastrointestinal hemorrhage type Qualified Code(s): K92.2 - Gastrointestinal hemorrhage, unspecified (3) Afib Qualifiers: Atrial fibrillation type: unspecified Qualified Code(s): I48.91 - Unspecified atrial fibrillation (4) HTN (hypertension) Qualifiers: Hypertension type: unspecified Qualified Code(s): I10 - Essential (primary) hypertension (5) COPD (chronic obstructive pulmonary disease) Qualifiers: COPD type: unspecified COPD Qualified Code(s): J44.9 - Chronic obstructive pulmonary disease, unspecified
[2018-07-17 05:31] LABS: Hematocrit 30.5 % (35.3-44.9)
[2018-07-17] MEDS: Pantoprazole 40 MG VIAL IVP SCH (05:45)
[2018-07-17 05:52] LABS: BUN/Creatinine Ratio 18 (6-26); Blood Urea Nitrogen 7 mg/dL (8-23); Calcium 8.9 mg/dL (8.6-10.3); Carbon Dioxide 29 mEq/L (23-29); Chloride 101 mEq/L (98-107); Glucose 89 mg/dL (70-105); Osmolality,Calculated 281 (280-300); Potassium 2.9 mEq/L (3.5-5.1); Sodium 137 mEq/L (136-145); eGFR For Non-African Americans > 60 (> 60)
--- NOTE | 2018-07-17 07:35 | ENT - Consult Note ---
Date of Encounter: 07/17/18 Time of Encounter: 07:00 Assessment and Plan (1) Epistaxis Current Visit: Yes Status: Acute White female with reasonable epistaxis control for 48 hours we will observe her for several hours before discharge if okay with hospitalist patient will be discharged with instructions to follow up tomorrow afternoon at 5:00 at which time we will remove the left Merocel sponge and observe the patient for a while before discharging to home she can also begin to reinstitute Coumadin 24 hours after removal of the left nasal pack tomorrow no evidence of any other problems or concerns currently other than significant confusion History of Present Illness Consult date: 07/17/18 History of present illness: 73-year-old white female with bleeding primarily from the left side of the nose this is been packed twice apparently the second time was packed was on Wednesday with a replacement of a Rhino Rocket with a Merocel sponge in the left side later because of continued bleeding the patient had a Rhino Rocket placed in the right side this seemed to control the bleeding well the patient has been in the hospital for 48 hours with reasonable control of the bleeding we removed the right Rhino Rocket from the right side with no bleeding was noted after removal of the right sided packing we will continue to observe her for a while before discharging her with instructions to follow-up tomorrow afternoon for removal of the left Merocel sponge if she continues to do well Past Med Surg Social Fam HX - Past Medical History Medical history: atrial fibrillation, cancer, COPD, hypertension Additional medical history: Smoker. Nicotine Addiction. COPD. Alcohol use daily Psychiatric history: no psych history - Past Surgical History Additional surgical history: Tubal - Social History Smoking Status: Current every day smoker Packs per day: 1 Smokeless Tobacco Status: No Alcohol use: heavy Drug use: none Medications and Allergies Albuterol Sulfate [Proair Hfa] 2 puff IH Q4H PRN 07/14/18 [History] Fluticasone Propionate Nasal [Flonase] 1 spray NS DAILY PRN 07/14/18 [History] Levothyroxine Sodium [Levoxyl] 50 mcg PO DAILY 07/14/18 [History] Metoprolol Succinate [Toprol Xl] 100 mg PO DAILY 07/14/18 [History] Warfarin Sodium 3.75 mg PO DAILY 07/14/18 [History] 3 Allergy/AdvReac Type Severity Reaction Status Date / Time tetanus and diphtheria Allergy Swelling Verified 07/14/18 10:02 toxoids of Lip/Tongue/Throat codeine AdvReac Headache Verified 07/14/18 10:02 Sulfa (Sulfonamide AdvReac Headache Verified 07/14/18 10:02 Antibiotics) IVP dye Allergy Difficulty Uncoded 07/14/18 15:45 Breathing ENT Exam Initial Vital Signs Temp Pulse Resp BP Pulse Ox 99.2 F 71 18 137/70 98 07/14/18 09:56 07/14/18 09:56 07/14/18 09:56 07/14/18 09:56 07/14/18 09:56 - General physical appearance well developed, well nourished, no distress, no pain. negative: moderate distress, severe distress, moderate pain, severe pain, cachectic, obese - ENT normal pinna, normal nares, normal mucosa, Other (Rhino Rocket in the right side Merocel sponge in the left side no active bleeding right Rhino Rocket removed and patient observed before discharged) - Neck no masses, trachea midline, no lymphadectomy. negative: deviated trachea, diffuse goiter, limited ROM - Respiratory normal expansion, normal respiratory effort, clear to percussion, clear to auscultation - Abdomen Abdomen: soft, non tender, bowel sounds, no tender, no surgical scars - Integumentary no rash, no growths, no abnormal pigmentation - Neurologic normal coordination, normal sensation - Musculoskeletal normal gait, normal posture Exam Initial Vital Signs Temp Pulse Resp BP Pulse Ox 99.2 F 71 18 137/70 98 07/14/18 09:56 07/14/18 09:56 07/14/18 09:56 07/14/18 09:56 07/14/18 09:56 Results - Labs 07/17/18 05:00 07/17/18 05:00 Abnormal lab results RBC 3.19 M/mcL (3.82-4.97) L 07/16/18 05:04 Hgb 10.0 g/dL (11.5-15.4) L 07/17/18 05:00 Hct 30.5 % (35.3-44.9) L 07/17/18 05:00 MCH 33.5 pg (28.0-33.3) H 07/16/18 05:04 Plt Count 98 K/mcL (140-400) L 07/16/18 05:04 Immature Plt Fraction 12.4 % (1.1-6.1) H 07/16/18 05:04 PT 13.4 Seconds (9.4-12.1) H 07/16/18 05:04 Potassium 2.9 mEq/L (3.5-5.1) L 07/17/18 05:00 BUN 7 mg/dL (8-23) L 07/17/18 05:00 Creatinine 0.40 mg/dL (0.60-1.20) L 07/17/18 05:00 Diabetes panel 07/17/18 Range/Units 05:00 Sodium 137 (136-145) mEq/L Potassium 2.9 L (3.5-5.1) mEq/L Chloride 101 (98-107) mEq/L Carbon Dioxide 29 (23-29) mEq/L BUN 7 L (8-23) mg/dL Creatinine 0.40 L (0.60-1.20) mg/dL Glucose 89 (70-105) mg/dL Calcium 8.9 (8.6-10.3) mg/dL Calcium panel 07/17/18 Range/Units 05:00 Calcium 8.9 (8.6-10.3) mg/dL Pituitary panel 07/17/18 Range/Units 05:00 Sodium 137 (136-145) mEq/L Potassium 2.9 L (3.5-5.1) mEq/L Chloride 101 (98-107) mEq/L Carbon Dioxide 29 (23-29) mEq/L BUN 7 L (8-23) mg/dL Creatinine 0.40 L (0.60-1.20) mg/dL Glucose 89 (70-105) mg/dL Calcium 8.9 (8.6-10.3) mg/dL Adrenal panel 07/17/18 Range/Units 05:00 Sodium 137 (136-145) mEq/L Potassium 2.9 L (3.5-5.1) mEq/L Chloride 101 (98-107) mEq/L Carbon Dioxide 29 (23-29) mEq/L BUN 7 L (8-23) mg/dL Creatinine 0.40 L (0.60-1.20) mg/dL Glucose 89 (70-105) mg/dL Calcium 8.9 (8.6-10.3) mg/dL All other labs normal. Consult Discharge Plan - Plan Referrals: Cat Moser CNP [Primary Care Provider] - (Your appointment has been requested. Our offices will call you with an appointment time and date.)
[2018-07-17] MEDS: Metoprolol XL (24 HR) Succ 50 MG TAB.ER.24H PO SCH (09:50)
[2018-07-17] MEDS: cephALEXin 500 MG CAPSULE PO SCH ×2 (09:51→15:59)
[2018-07-17 11:38] VITALS: BP 98/58
--- NOTE | 2018-07-17 14:30 | Discharge Summary ---
Date of Encounter: 07/17/18 Time of Encounter: 09:00 - Discharge Diagnosis (1) Epistaxis Priority: Secondary Status: Acute Assessment and Plan: Pt presented to outside ER with c/o epistaxis and GI bleed. ENT consulted, I appreciate their recommendations. They have evaluated pt and removed left side packing, pt is to return to the ER tomorrow for removal of left nare packing. Hgb stable this a.m. May take a few days for Hgb to bounce back. Pt has no obvious bleeding at this time. Will redraw Hgb in 3 days with results to PCP. Pt takes Coumadin, it has been held. INR therapeutic, 1.2 today. Can restart Warfarin 24 hours after left packing removed. Pt was given Vitamin K at [facility]. (2) GI bleed Priority: Secondary Status: Ruled-out Assessment and Plan: Pt presented to outside hospital with [facility] GIB [facility] Likely due to swallowing blood from epistaxis. GI has been consulted. I appreciate their recommendations. Hgb stable Pt takes Warfarin, it has been held. Follow up with GI for scope in 2-3 weeks. Qualifiers: GI bleed type/associated pathology: unspecified gastrointestinal hemorrhage type Qualified Code(s): K92.2 - Gastrointestinal hemorrhage, unspecified (3) Afib Priority: Secondary Status: Chronic Assessment and Plan: Chronic. Rate controlled. Continue BB. Warfarin held for epistaxis. Pt will need to see PCP/cardiology for anticoagulation after discharge. Continue telemetry Qualifiers: Atrial fibrillation type: unspecified Qualified Code(s): I48.91 - Unspecified atrial fibrillation (4) HTN (hypertension) Priority: Secondary Status: Chronic Assessment and Plan: Chronic. IV HYdralazine prn. Continue to monitor vitals. Qualifiers: Hypertension type: unspecified Qualified Code(s): I10 - Essential (primary ) hypertension (5) COPD (chronic obstructive pulmonary disease) Priority: Secondary Status: Chronic Assessment and Plan: No acute exacerbation. Pt still smokes 1/2 PPD. Duonebs, 02 as needed to maintain sats > 92% Telemetry Continuous pulse ox, 02. Pt is satting 94-95% on room air Qualifiers: COPD type: unspecified COPD Qualified Code(s): J44.9 - Chronic obstructive pulmonary disease, unspecified (6) DVT prophylaxis Priority: Secondary Status: Acute Assessment and Plan: SCDs. No pharmacologic intervention due to epistaxis. Hospital course: Please see assessment and plan for hospital course. Discharge discussed with: patient, family - Time Spent with Patient Total time spent providing and/or coordinating discharge services: Less than 30 minutes - Discharge Medications Prescriptions: cephALEXin [Keflex] 500 mg PO TID #9 capsule Home Medications: Albuterol Sulfate [Proair Hfa] 2 puff IH Q4H PRN 07/14/18 [History] Fluticasone Propionate Nasal [Flonase] 1 spray NS DAILY PRN 07/14/18 [History] Levothyroxine Sodium [Levoxyl] 50 mcg PO DAILY 07/14/18 [History] Metoprolol Succinate [Toprol Xl] 100 mg PO DAILY 07/14/18 [History] Warfarin Sodium 3.75 mg PO DAILY 07/14/18 [History] cephALEXin [Keflex] 500 mg PO TID #9 capsule 07/17/18 [Rx] Allergies/Adverse Reactions: 3 Allergy/AdvReac Type Severity Reaction Status Date / Time tetanus and diphtheria Allergy Swelling Verified 07/14/18 10:02 toxoids of Lip/Tongue/Throat codeine AdvReac Headache Verified 07/14/18 10:02 Sulfa (Sulfonamide AdvReac Headache Verified 07/14/18 10:02 Antibiotics) IVP dye Allergy Difficulty Uncoded 07/14/18 15:45 Breathing Date of admission: 07/14/18 11:41 Primary care physician: Cat Moser CNP Consults: 07/14/18 11:53 Consult to ENT [CONS] Routine Consulting Provider: ENT Christy Reason for Consult: Epistaxis, requested by [place] Call Completed: Yes Consult to Gastroenterology [CONS] Routine Consulting Provider: Gastroenter[facility] [place] Reason for Consult: Rule out GIB. Call Completed: Yes 07/14/18 14:36 Consult to Gastroenterology [CONS] Routine Consulting Provider: Gastroenterology Christy Reason for Consult: Possible GI Bleed, epistasis x 3 days fecal occult possitive at [facility] Time Notified: 14:41 Call Completed: Yes 07/14/18 14:42 Consult to ENT [CONS] Routine Consulting Provider: ENT Christy Reason for Consult: admitted from ED for epistasis continues to have active bleeding with nasal packing in place. Spontaneous, Coumadin use Nose bleeding x 3 days. Time Notified: 14:46 Call Completed: No 07/15/18 14:08 Consult to Interventional Radiology [CONS] Routine Consulting Provider: Radiology [facility] [place] Reason for Consult: left posterior epistaxis Time Notified: 14:08 Call Completed: Yes Discharging clinician: Estelle Layton Anticipated date of discharge: 07/17/18 - Constitutional Vitals: Temp Pulse Resp BP Pulse Ox 99.3 F 71 17 98/58 95 07/17/18 11:34 07/17/18 11:34 07/17/18 11:34 07/17/18 11:34 07/17/18 11:34 General appearance: Present: cachectic, disheveled, A&O X 3, no acute distress Exam: as above - Head Head exam: Present: atraumatic, normocephalic - Eye Eye exam: Present: PERRL, conjuntiva pink, sclera anicteric Pupils: Present: PERRL - Neck Neck exam general surgery: Present: supple, trachea midline. Absent: lymphadenopathy - Respiratory Respiratory exam: Present: CTAB. Absent: accessory muscle use, rales, rhonchi, wheezes - Cardiovascular Cardiovascular exam: Present: RRR, +S1, +S2. Absent: diastolic murmur, gallop, rubs, systolic murmur - GI/Abdominal GI/Abdominal exam: Present: normal bowel sounds, soft, no peritoneal signs. Absent: distended, tenderness - Extremities Exam Extremities exam: Present: warm, radial pulses palpable and symmetrical. Absent : calf tenderness, cyanotic, pedal edema - Neurological Exam Neurological exam: Present: CN II-XII intact, oriented X3, no focal deficits. Absent: pronater drift, facial droop, speech deficit - Skin Skin exam: Present: dry, intact - Patient Status Disposition: Home, Self-Care Condition: Good Functional capacity at discharge: independent ambulation Overall status at discharge: patient is progressing back to baseline - Discharge Instructions Follow Up With: Cat Moser CNP [Primary Care Provider] - (Your appointment has been requested. Our offices will call you with an appointment time and date.) Additional Instructions: Come to the ER tomorrow evening at 5pm and have them call Dr. Del Valle to come to remove the packing from your nose. Take your antibiotic as directed Do not start your Warfarin again until 24 hours after the remaining packing is removed. Take your other medications as directed. Return to your other activities and diet as tolerated. - Diet and Activity Activity: increase activity as tolerated Diet: advance to your usual diet - VTE Documentation of Mechanical Device: Intermittent pneumatic compression device
== END 2018-07-17 16:50 | disposition home or self-care (01) ==
LOC: 3BNU 09:53 → EMEROOARM 09:53 → 3BNU 14:07
PROVIDERS: ADMIT Student in an Organized Health Care Education/Training Program; ATTEND Student in an Organized Health Care Education/Training Program